=== PATIENT | male | born 1960 | race Caucasian/White ===

== ENCOUNTER → 2016-11-05 | Day surgery (SDC) | payer OTHER ==
[~2016-11-05] VITALS: Ht 185.4 cm; Wt 53.5 kg
[~2016-11-05] MED LIST: 0.9% Sodium Chloride 1,000 ML IV SCH; ALBU2.5V4 PO; ALBU8.5H2 INH; ALBU8.5H2 INHALATION; IPRA3AMP INH; MOME13HF INH; MTC5T PO; OSLT75C PO; PRED-508 PO; Sodium Chloride LOK Flush 10 mL Syringe IV PRN; fentaNYL-PF 50 mCg/mL 2 mL Inj IVPUSH PRN
[2016-11-05 13:17] VITALS: BP 104/66; PULSE 50; RESP 12; O2SAT 99
[2016-11-05 15:33] VITALS: BP 102/64; PULSE 59; RESP 16; O2SAT 98
[2016-11-05 15:43] VITALS: BP 102/64; PULSE 53; RESP 16; O2SAT 98
--- NOTE | 2016-11-05 15:49 | ENDO ---
[address] [address] ENDOSCOPY PROCEDURE PATIENT: ELVI BAUER : 1960 MR#: [id number] ADMIT: 11/05/2016 JOB ID: [id number] DATE: 11/05/2016 PROCEDURE: Esophagogastroduodenoscopy. INDICATION: Patient with a history of gastric intestinal metaplasia in the background of Helicobacter pylori. The patient's ASA classification is 2. Mallampati score is 2. MEDICATIONS: 1. Versed 5 mg. 2. Fentanyl 100 mcg. INSTRUMENT USED: GIF H 180 J. PROCEDURE DETAILS: After informed consent was obtained, the patient was brought into the GI suite, where he was placed on oxygen via nasal cannula and monitored with continuous pulse oximeter, telemetry and blood pressure monitoring. A time-out was performed. Then, he was placed in the left lateral decubitus position and medications were administered for sedation. A bite block was placed. Standard EGD scope was inserted through the bite block and advanced under direct visualization to second portion of duodenum without difficulty. FINDINGS: 1. Normal appearing duodenal bulb, first and second portion. Multiple random biopsies were obtained. 2. Normal appearing pylorus. In the antrum and body of the stomach, the mucosa had a mosaic appearance suggestive of gastropathy. Retroflexed views in the gastric body revealed normal appearing cardia and fundus. However, the mosaic appearing pattern was noted in the fundus as well. Multiple random biopsies were obtained throughout the antrum and body of the stomach. 3. The GE junction was at approximately 45 cm and was slightly irregular. Multiple random biopsies were obtained. 4. Normal appearing esophagus. IMPRESSION: 1. Mosaic appearance to the mucosa in the stomach suggestive of gastropathy. 2. Irregular gastroesophageal junction. RECOMMENDATIONS: 1. Await biopsy results. 2. Followup in GI clinic in 2-4 weeks. COMPLICATIONS: None. ESTIMATED BLOOD LOSS: Less than 5 mL.
[2016-11-05 15:53] VITALS: BP 105/68; PULSE 52; RESP 16; O2SAT 99
[2016-11-05 16:13] VITALS: BP 107/70; PULSE 50; RESP 16; O2SAT 99
--- NOTE | 2016-11-11 16:21 | PATH ---
SURGICAL PATHOLOGY Attending Physician:Tish Encarnacion CASE STATUS: Signed Out PATIENT NAME: ELVI BAUER PID: [id number] : 1960 DATE COLLECTED:11/05/2016 00:00 SPECIMEN: 1: Duodenum, Biopsy 2: Gastric, Biopsy 3: Esophagus, Biopsy CLINICAL HISTORY: 1). DUODENAL BIOPSY 2). GASTRIC BIOPSY 3). DISTAL ESOPHAGUS FINAL DIAGNOSIS: 1. Duodenum, Biopsy: Duodenal mucosa with no diagnostic abnormality. Negative for active inflammation, features of sprue, dysplasia or malignancy. 2. 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 Helicobacter organisms identified on immunohistochemistry. Negative for intestinal metaplasia, dysplasia or malignancy. 3. Distal Esophagus, Biopsy: Squamocolumnar junctional mucosa with chronic mild active inflammation. Negative for intestinal metaplasia, dysplasia or malignancy. ICD10: B96.81 GROSS DESCRIPTION: Received three formalin-filled containers, each labeled with the patient's name. 1. Received in formalin, labeled with the patient's name and "duodenal biopsy" are two fragments of fonseca soft tissue ranging from 0.3 x 0.2 x 0.1 cm to 0.8 x 0.2 x 0.1 cm. The fragments are totally submitted in cassette 1A. 2. Received in formalin, labeled with the patient's name and "gastric biopsy" are three fragments of fonseca soft tissue ranging from 0.1 x 0.1 x 0.1 cm to 0.4 x 0.2 x 0.1 cm. The fragments are totally submitted in cassette 2A. 3. Received in formalin, labeled with the patient's name and "distal esophagus biopsy" are two fragments of fonseca soft tissue ranging from 0.3 x 0.2 x 0.1 cm to 0.4 x 0.2 x 0.1 cm. The fragments are totally submitted in cassette 3A. [id number]) MICRO DESCRIPTION: Part 2: Immunohistochemical stain is performed to evaluate for Helicobacter organisms and is positive. * This test was developed and its performance characteristics determined by [employer]. It has not been cleared or approved by the [place]. Food and Drug Administration. The FDA has determined that such clearance or approval is not necessary. This test is used for clinical purposes. It should not be regarded as investigational or for research. ICD-9 CODES: CPT CODES: 1: 00697 2: 96180, 01124 3: 57955 Electronically Signed Out Sundeep Griffin MD, Ph.D. [facility] [address], [place] [address] Technical component performed at [facility], [facility] [address], [place], [address]
== END | disposition home or self-care (01) ==
LOC: END 00:33
PROVIDERS: ATTEND Internal Medicine Gastroenterology
DX: K31.89 Other diseases of stomach and duodenum (principal); K29.50 Unspecified chronic gastritis without bleeding; B96.81 Helicobacter pylori [H. pylori] as the cause of diseases classified elsewhere; L57.0 Actinic keratosis; M54.2 Cervicalgia; R07.89 Other chest pain; J44.9 Chronic obstructive pulmonary disease, unspecified; H61.20 Impacted cerumen, unspecified ear; E55.9 Vitamin D deficiency, unspecified; R00.1 Bradycardia, unspecified; R63.4 Abnormal weight loss; F17.210 Nicotine dependence, cigarettes, uncomplicated; Z79.899 Other long term (current) drug therapy